=== PATIENT | male | born 1975 | race Caucasian/White ===

== ENCOUNTER 2016-08-05 20:49 | Emergency (ER) | payer MEDICARE, OTHER ==
[2016-08-05 20:54] VITALS: BP 122/73; PULSE 75; RESP 16; TEMP 98.3; O2SAT 97
[2016-08-05] MEDS ORDERED: LIDOCAINE HCL 1% 50 ML VIAL INFIL ONE (21:45)
[2016-08-05] MEDS ORDERED: TETANUS/DIPHTHERIA TOXOID ADULT 0.5 ML VIAL IM ONE (21:45)
[2016-08-05] MEDS ORDERED: BUPIVACAINE HCL PF 0.5% 10 ML VIAL INFIL ONE (21:45)
[2016-08-05] MEDS ORDERED: CEPH-460 PO (21:46)
[2016-08-05] MEDS ORDERED: TYLETAB34 PO (21:46)
--- NOTE | 2016-08-05 21:46 | PD ---
HPI Chief Complaint: Laceration/Skin Injury Time Seen by Provider: 21:38 Travel History International Travel<30 days: No Contact w/Intl Traveler<30days: No Traveled to known affect area: No History of Present Illness HPI 41-year-old male complains of left thumb laceration. Patient accidentally cut his left thumb with a kitchen knife this evening. Patient stated he is not up- to-date with TD booster. PFSH Social History Tobacco Use: No Allergies-Medications (Allergen,Severity, Reaction): Coded Allergies: No Known Allergies (Unverified , 08/05/16) Reported Meds & Prescriptions Reported Meds & Active Scripts Active Keflex (Cephalexin) 500 Mg Capsule 500 Mg PO TID Tylenol-Codeine #3 (Acetaminophen-Codeine) 300-30 mg Tab 1 Tab PO Q6HR PRN Reported Omeprazole 20 Mg Tab 20 Mg PO DAILY Review of Systems General / Constitutional: No: Fever Eyes: No: Visual changes HENT: No: Headaches Cardiovascular: No: Chest Pain or Discomfort Respiratory: No: Shortness of Breath Gastrointestinal: No: Abdominal Pain Genitourinary: No: Dysuria Musculoskeletal: No: Pain Skin: No Rash Neurologic: No: Weakness Psychiatric: No: Depression Endocrine: No: Polydipsia Hematologic/Lymphatic: No: Easy Bruising Physical Exam Narrative GENERAL: Well-nourished, well-developed patient. SKIN: Focused skin assessment warm/dry. HEAD: Normocephalic. EYES: No scleral icterus. No injection or drainage. NECK: Supple, trachea midline. No JVD or lymphadenopathy. CARDIOVASCULAR: Regular rate and rhythm without murmurs, gallops, or rubs. RESPIRATORY: Breath sounds equal bilaterally. No accessory muscle use. GASTROINTESTINAL: Abdomen soft, non-tender, nondistended. MUSCULOSKELETAL: No cyanosis, or edema. BACK: Nontender without obvious deformity. No CVA tenderness. Patient has 1 cm laceration to the tip of the left thumb. Minor bleeding noted. No ligament tendon joint involvement. Laceration involving the left thumbnail. Data Data Last Documented VS Vital Signs Date Time Temp Pulse Resp B/P Pulse Ox O2 Delivery O2 Flow Rate FiO2 08/05/16 22:12 80 20 08/05/16 20:54 98.3 122/73 97 Room Air Orders Wound Care (08/05/16 21:38) Bupivacaine Pf 0.5% Inj (Marcaine Pf 0.5 (08/05/16 21:45) Lidocaine 1% Inj (50 Ml) (Xylocaine 1% I (08/05/16 21:45) Tetanus/Diphtheria Tox Adult (Tetanus/Di (08/05/16 21:45) Lidocaine Pf 1% Inj (Xylocaine-Mpf 1% In (08/05/16 21:51) MDM Medical Decision Making Medical Screen Exam Complete: Yes Emergency Medical Condition: Yes Differential Diagnosis Differential diagnosis including thumb laceration. Narrative Course 41-year-old male with Left thumb laceration. TD booster given. Diagnosis Primary Impression: Laceration of left thumb Qualified Code: S61.112A - Laceration of left thumb without foreign body with damage to nail, initial encounter Patient Instructions: General Instructions Additional Instructions: Wound care daily. Keflex as directed. Tylenol with codeine for pain. Follow- up with personal physician. Return if increasing redness swelling. Suture removal in 10 days. Med/Other Pt SpecificInfo: Prescription(s) given Scripts Cephalexin (Keflex)500 Mg [id number] Mg PO TID #15 CAP Ref 0 Prov:Mayank Lewis MD 08/05/16 Acetaminophen-Codeine (Tylenol-Codeine #3)300-30 mg Tab1 Tab PO Q6HR PRN (PAIN SCALE 1 TO 10) #10 TAB Prov:Mayank Lewis MD 08/05/16 Disposition: 01 DISCHARGE HOME Condition: Stable Mayank Lewis MD Aug 05, 2016 21:46
[2016-08-05] MEDS ORDERED: LIDOCAINE HCL 1% PF 30 ML VIAL ONE (21:51)
[2016-08-05] MEDS ORDERED: OMEP20TA PO (22:12)
--- NOTE | 2016-08-05 22:18 | PD ---
Physical Exam Date Seen by Provider: Aug 05, 2016 Time Seen by Provider: 22:16 Narrative 41 yo male here for laceration to the finger. please refer to my attendings note. Data Data Last Documented VS Vital Signs Date Time Temp Pulse Resp B/P Pulse Ox O2 Delivery O2 Flow Rate FiO2 08/05/16 22:12 80 20 08/05/16 20:54 98.3 122/73 97 Room Air Orders Wound Care (08/05/16 21:38) Bupivacaine Pf 0.5% Inj (Marcaine Pf 0.5 (08/05/16 21:45) Lidocaine 1% Inj (50 Ml) (Xylocaine 1% I (08/05/16 21:45) Tetanus/Diphtheria Tox Adult (Tetanus/Di (08/05/16 21:45) Lidocaine Pf 1% Inj (Xylocaine-Mpf 1% In (08/05/16 21:51) MDM Medical Record Reviewed: Yes Supervised Visit with RACHELLE: No Procedures Procedure Narrative LACERATION LOCATION: left thumb LENGTH: 1 cm NUMBER OF STITCHES/ASHLEY: 4 sutures REPAIR: The area of the laceration was prepped with Betadine and sterilely draped. The laceration was infiltrated with 1% Xylocaine for digital block. The wound was copiously irrigated and explored without evidence of foreign body , tendon injury or neurovascular injury. The wound was closed using 4-0 Ethilone. This was a 1 layer repair. A sterile dressing was applied. The patient was advised to keep the dressing clean and dry. Patient tolerated the procedure well. Diagnosis Primary Impression: Laceration of left thumb Qualified Code: S61.112A - Laceration of left thumb without foreign body with damage to nail, initial encounter Patient Instructions: General Instructions Additional Instruction: Wound care daily. Keflex as directed. Tylenol with codeine for pain. Follow- up with personal physician. Return if increasing redness swelling. Suture removal in 10 days. Scripts Cephalexin (Keflex)500 Mg [id number] Mg PO TID #15 CAP Ref 0 Prov:Mayank Lewis MD 08/05/16 Acetaminophen-Codeine (Tylenol-Codeine #3)300-30 mg Tab1 Tab PO Q6HR PRN (PAIN SCALE 1 TO 10) #10 TAB Prov:Mayank Lewis MD 08/05/16 Disposition: 01 DISCHARGE HOME Condition: Stable Rylan Seth Aug 05, 2016 22:18
== END 2016-08-05 23:41 | disposition home or self-care (01) ==
LOC: NEPD 20:49
DX: S61.012A Laceration without foreign body of left thumb without damage to nail, initial encounter (principal); W26.0XXA Contact with knife, initial encounter; Z23 Encounter for immunization
CPT/HCPCS: 12001; 90471; 90714